=== PATIENT | female | born 1960 | race Two or more races ===

== ENCOUNTER 2021-10-07 06:00 | Day surgery (SDC) | payer OTHER ==
[~2021-10-07 06:00] MED LIST: ANAST PO; VITAMIN D3 PO
== END 2021-10-07 16:10 | disposition home or self-care (01) ==
LOC: CIR.AMB 06:00
PROVIDERS: ATTEND Surgery
DX: C50.412 Malignant neoplasm of upper-outer quadrant of left female breast (principal); Z17.0 Estrogen receptor positive status [ER+]; R59.0 Localized enlarged lymph nodes; R73.03 Prediabetes; Z42.1 Encounter for breast reconstruction following mastectomy; Z20.822 Contact with and (suspected) exposure to COVID-19

== ENCOUNTER 2022-11-03 05:58 | Day surgery (SDC) | payer OTHER ==
[~2022-11-03] VITALS: Ht 160 cm; Wt 59.0 kg
== END 2022-11-03 16:55 | disposition home or self-care (01) ==
LOC: CIR.AMB 05:58
PROVIDERS: ATTEND Plastic Surgery
DX: Z90.12 Acquired absence of left breast and nipple (principal); N65.1 Disproportion of reconstructed breast; Z20.822 Contact with and (suspected) exposure to COVID-19